=== PATIENT | female | born 1950 | race Caucasian/White ===

== ENCOUNTER 2021-01-14 20:44 | Emergency (ER) | payer OTHER ==
[~2021-01-14 20:44] MED LIST: NABUMETONE500 MG PO
[2021-01-14 21:32] LABS: HEMOGLOBIN 14.2 gm/dl (12.3-15.3); RED BLOOD COUNT 4.74 M/UL (4.00-5.10); WHITE BLOOD COUNT 8.1 K/UL (4.5-11.0)
[2021-01-14 21:59] LABS: BUN/CREATININE RATIO 22 (0-10)
[2021-01-14] MEDS ORDERED: LOPRESSOR 25 MG25 MG PO (23:18)
== END 2021-01-14 23:05 | disposition home or self-care (01) ==
LOC: ER1 20:44
PROVIDERS: Family Medicine
DX: I10 Essential (primary) hypertension (principal); R41.3 Other amnesia
CPT/HCPCS: 70450; 80053; 80061; 82550; 82553; 83874; 84484; 85025; 93005; 99284